=== PATIENT | male | born 1955 | race Caucasian/White ===

== ENCOUNTER 2018-04-09 07:37 | Emergency (ER) | payer BC ==
[2018-04-09] MEDS ORDERED: Acetaminophen/HYDROcodone 325-5 MG Tab PO ONE (07:38)
[2018-04-09 07:42] VITALS: BP 153/97
[2018-04-09] MEDS ORDERED: Ketorolac 60 MG/2 ML SDV IM ONE (07:50)
[2018-04-09] MEDS ORDERED: Take Home: Acetaminophen/HYDROcodone 325-5 MG, 2 Tab Pack PO ONE (08:25)
[2018-04-09] MEDS ORDERED: Meloxicam 7.5 MG Tab ONE (08:28)
--- NOTE | 2018-04-09 08:28 | EDM.PDOC ---
ED HPI GENERAL MEDICAL PROBLEM - General Chief Complaint: Back Pain or Injury Stated Complaint: right low back pain Time Seen by Provider: 04/09/18 08:10 Source of Information: Reports: Patient History Limitations: Reports: No Limitations - History of Present Illness INITIAL COMMENTS - FREE TEXT/NARRATIVE: Patient presents today with complaints of ongoing back pain. He has had intermittent issues over the years. Does not recall a specific injury or event that led to this flare up. Was seen by Beau Shaw on Tuesday. Started on Flexeril and Ibuprofen and went to PT. States it has progressively gotten worse. Has pain in the lower lumbar spine that radiates down his right buttock. Does not feel his range of motion is too limited with this the pain is persistent. Unable to rest well due to pain. Denies weakness in his leg Onset: Gradual Duration: Day(s): Location: Reports: Back Quality: Reports: Sharp Severity: Severe Improves with: Reports: None Worsens with: Reports: Movement Associated Symptoms: Reports: No Other Symptoms Treatments [employer] COMM[employer]ICATIONS: Reports: NSAIDS, Other Medication(s) (Flexeril) Right Lower Back Pain Score (Numeric/FACES): 9 - Related Data Allergies Allergy/AdvReac Type Severity Reaction Status Date / Time No Known Allergies Allergy Verified 04/09/18 07:42 Home Meds: Home Meds Cholecalciferol (Vitamin D3) [Vitamin D] 1 tab PO DAILY 10/06/16 [History] Cyclobenzaprine [Flexeril] 10 mg PO TID PRN 04/09/18 [History] Ibuprofen 400 mg PO Q6H PRN 04/09/18 [History] Meloxicam 15 mg PO DAILY #14 tablet 04/09/18 [Rx] Past Medical History Musculoskeletal History: Reports: Fracture Endocrine/Metabolic History: Reports: Obesity/BMI 30+, Vitamin D Deficiency - Past Surgical History GI Surgical History: Reports: Colonoscopy Neurological Surgical History: Reports: C-Spine, Lumbar Spine Social & Family History - Tobacco Use Smoking Status *Q: Never Smoker - Recreational Drug Use Recreational Drug Use: No ED ROS GENERAL - Review of Systems Review Of Systems: See Below Constitutional: Denies: Fever, Chills, Malaise, Weakness, Fatigue HEENT: Reports: No Symptoms Respiratory: Reports: No Symptoms Cardiovascular: Reports: No Symptoms Endocrine: Reports: No Symptoms GI/Abdominal: Reports: No Symptoms : Reports: No Symptoms Musculoskeletal: Reports: Back Pain, Leg Pain Skin: Reports: No Symptoms Neurological: Denies: Numbness, Tingling, Weakness ED EXAM,LOWER BACK PAIN/INJURY - Physical Exam Exam: See Below Exam Limited By: No Limitations General Appearance: Alert, WD/WN, No Apparent Distress Neck: Normal Inspection Respiratory/Chest: No Respiratory Distress, Lungs Clear, Normal Breath Sounds Cardiovascular: Regular Rate, Rhythm Back Exam: Normal Inspection, Muscle Spasm, Paraspinal Tenderness (Right buttock tender near the SI joint. Radiates around his thigh with pressure to this area), Vertebral Tenderness Neurological: Alert, Normal Mood/Affect, Normal Gait, No Motor/Sensory Deficits Skin Exam: Warm, Dry Course - Vital Signs Last Recorded V/S: Last Vital Signs Temp 95.1 F L 04/09/18 07:39 Pulse 68 04/09/18 07:39 Resp 20 04/09/18 07:39 BP 153/97 H 04/09/18 07:39 Pulse Ox 97 04/09/18 07:39 - Orders/Labs/Meds Orders: Active Orders 24 hr Category Date Time Status Meloxicam [Mobic] Med 04/10/18 08:00 Ordered 15 mg PO DAILY Medication Orders Meloxicam (Mobic) 15 mg PO DAILY MICHEAL Meds: Medications Generic Name Dose Route Start Last Admin Trade Name Freq PRN Reason Stop Dose Admin Meloxicam 15 mg 04/10/18 08:00 Mobic PO DAILY MICHEAL Discontinued Medications Generic Name Dose Route Start Last Admin Trade Name Freq PRN Reason Stop Dose Admin Hydrocodone Bitart/Acetaminophen 2 packet 04/09/18 08:25 Take Home: Acetaminophen/Hydrocod, 2 Tab Pack PO 04/09/18 08:26 ONETIME ONE Ketorolac Tromethamine 60 mg 04/09/18 07:50 04/09/18 07:56 Toradol IM 04/09/18 07:51 60 mg ONETIME ONE Administration Orphenadrine Citrate 60 mg 04/09/18 07:50 04/09/18 07:55 Norflex IM 04/09/18 07:51 60 mg ONETIME ONE Administration Departure - Departure Time of Disposition: 08:22 Disposition: Home, Self-Care 01 Condition: Good Clinical Impression: Low back pain radiating down leg - Discharge Information Prescriptions: Meloxicam 15 mg PO DAILY #14 tablet Referrals: Bacilio Vanessa MD [Primary Care Provider] - Forms: ED Department Discharge Additional Instructions: 1. Rest 2. Exercises as instructed by PT 3. Continue with physical therapy 4. Flexeril as prescribed 5. Meloxicam 15 mg daily 6. [place] 5/325 1-2 tabs every 6 hours for pain 7. MRI on Tuesday if able - My Orders Last 24 Hours: My Active Orders 04/10/18 08:00 Meloxicam [Mobic] 15 mg PO DAILY - Assessment/Plan Last 24 Hours: My Active Orders 04/10/18 08:00 Meloxicam [Mobic] 15 mg PO DAILY
[2018-04-10] MEDS ORDERED: Meloxicam 7.5 MG Tab PO SCH (08:00)
== END 2018-04-09 08:35 | disposition home or self-care (01) ==
LOC: CC.ED 07:37
DX: M54.5 Low back pain (principal); E66.9 Obesity, unspecified; Z79.899 Other long term (current) drug therapy
CPT/HCPCS: 96372; 99282; A9270; J1885; J2360

== ENCOUNTER 2022-08-09 07:48 | Emergency (ER) | payer MEDICARE, BC ==
[2022-08-09 08:51] LABS: PTT,PARTIAL THROMBOPLSTIN TIME 27.2 SEC (23.2-32.3)
[2022-08-09] MEDS ORDERED: Heparin Sodium 5,000 Units/ML Vial IVPUSH ONE (09:08)
[2022-08-09] MEDS ORDERED: Heparin Sodium/0.45% NaCl 500 ML IV SCH (09:15)
[2022-08-09 11:46] VITALS: BP 122/74; PULSE 94
[2022-08-09] MEDS ORDERED: Iopamidol 755 Mg/ML 100 ML Bottle IVPUSH ONE (13:38)
== END 2022-08-09 11:30 ==
LOC: CC.ED 07:48
DX: I82.411 Acute embolism and thrombosis of right femoral vein (principal); I26.99 Other pulmonary embolism without acute cor pulmonale; E66.9 Obesity, unspecified; Z68.33 Body mass index [BMI] 33.0-33.9, adult; Z20.822 Contact with and (suspected) exposure to COVID-19
CPT/HCPCS: 36415; 71275; 80053; 84484; 85025; 85379; 85610; 85730; 86140; 87804; 93005; 93010; 93971-RT; 96365; 96366; 96376; 99284; 99285; J1644; Q9967; U0002